=== PATIENT | female | born 1970 | race Caucasian/White ===

== ENCOUNTER → 2020-09-19 | Day surgery (SDC) | payer OTHER ==
[~2020-09-19] MED LIST: DICLOFENAC SODI75 MG PO; DRISDOL50000 UNIT PO; LIPITOR40 MG PO
[2020-09-19 07:50] LABS: HCT 43.1 % (37.0-47.0); HGB 14.1 g/dl (12.5-16.0); MCH 31.5 pg (25.0-31.0); MCHC 32.7 g/dL (32.0-36.0); MCV 96.2 fL (78.0-100.0); MPV 10.5 fL (6.0-9.5); RBC 4.48 M/uL (4.20-5.40); RDW 12.7 % (11.5-14.0); WBC 5.2 K/uL (4.0-10.5)
[2020-09-19 08:37] LABS: ALBUMIN 3.7 g/dL (3.4-5.0); BILIRUBIN - TOTAL 0.4 mg/dL (0.2-1.0); BUN/CREAT RATIO (CALC) 9.1 RATIO; CREATININE 0.55 mg/dL (0.51-0.95); POTASSIUM 4.2 mmol/L (3.5-5.1); TOTAL PROTEIN 7.7 g/dL (6.4-8.2)
== END | disposition home or self-care (01) ==
LOC: FAS 07:03
PROVIDERS: Surgery
DX: K57.30 Diverticulosis of large intestine without perforation or abscess without bleeding (principal); Z79.899 Other long term (current) drug therapy; Z80.0 Family history of malignant neoplasm of digestive organs; Z82.3 Family history of stroke; Z82.49 Family history of ischemic heart disease and other diseases of the circulatory system; Z91.013 Allergy to seafood
CPT/HCPCS: 36415; 80053; J1610; J2250; J2704; J7120